=== PATIENT | female | born 1955 | race Caucasian/White ===

== ENCOUNTER 2018-12-22 18:59 | Emergency (ER) | payer OTHER ==
[~2018-12-22] VITALS: Ht 160 cm; Wt 140.8 kg
[~2018-12-22 18:59] MED LIST: BENA20TA4 PO; CEPH-443 PO; CIPR500T4 PO; DOCU-144 PO; DOCU250C58 PO; HYDR-4011 PO; IBUP-1542 PO; LACT1CAP57 PO; METR500T PO; ONDA4TAB14 PO; PANT40TA3 PO; PSYL3.4P5 PO; TRAM50TA PO
[2018-12-22 19:13] VITALS: Ht 160 cm; Wt 140.8 kg
[2018-12-22] MEDS ORDERED: morphine 4 MG/ML VIAL IV STA (19:45)
[2018-12-22] MEDS ORDERED: SOD CHLORIDE 0.9% 1,000 ML IV STA (19:45)
[2018-12-22] MEDS ORDERED: ONDANSETRON 4 MG INJ IV STA (19:45)
[2018-12-22 21:47] VITALS: BP 148/69; PULSE 71; RESP 18
== END 2018-12-22 22:00 | disposition home or self-care (01) ==
LOC: E/R 18:59
DX: K46.9 Unspecified abdominal hernia without obstruction or gangrene (principal); I10 Essential (primary) hypertension
CPT/HCPCS: 36415; 74176; 80053; 81003; 83690; 84484; 85025; 93005; 96374; 96375; J2270; J2405; J7030; Z7502